=== PATIENT | male | born 1960 | race Caucasian/White ===

== ENCOUNTER 2021-04-01 12:04 | Outpatient (CLI) | payer MEDICARE | END 2021-04-01 23:59 | disposition home or self-care (01) | LOC: RAD 12:04 | PROVIDERS: ATTEND Physician Assistant Surgical | DX: M50.321 Other cervical disc degeneration at C4-C5 level (principal); M48.02 Spinal stenosis, cervical region; M25.511 Pain in right shoulder | CPT/HCPCS: 72050 ==